=== PATIENT | male | born 1965 | race Caucasian/White ===

== ENCOUNTER 2019-12-06 00:05 | Emergency (ER) | payer SELFPAY ==
[~2019-12-06] VITALS: Ht 175.2 cm; Wt 72.0 kg
[2019-12-06] MEDS ORDERED: MAGN400O7 PO (00:23)
--- NOTE | 2019-12-06 00:23 | ED Abdominal Pain ---
General Chief Complaint: Abdominal/GI Problems Stated Complaint: LOWER ABDOMINAL PAIN Source of Information: Patient History of Present Illness Date Seen by Provider: Dec 06, 2019 Time Seen by Provider: 00:18 Initial Comments Patient presents w vague lower abdominal pain and states he has worms. States not having bowel movements and unable to urinate. Has not seen a doctor for years. Allergies and Home Medications Allergies Coded Allergies: No Known Drug Allergies (Unverified , 12/06/19) Home Medications Magnesium Hydroxide 400 Mg/5 Ml Oral.susp, 400 MG PO DAILY PRN Prescribed by: TRASHA CASTANEDA on 12/06/19 0023 Patient Home Medication List Home Medication List Reviewed: Yes Review of Systems Review of Systems Constitutional: No dizziness, No fever, No malaise Respiratory: Denies Cough, Denies Shortness of Air Cardiovascular: Denies Chest Pain, Denies Edema Gastrointestinal: See HPI; Denies Abdomen Distended; Abdominal Pain, Constipated; Denies Diarrhea, Denies Nausea, Denies Poor Fluid Intake, Denies Rectal Bleeding, Denies Vomiting Genitourinary: See HPI; Denies Drainage, Denies Flank Pain Musculoskeletal: No back pain, No joint pain Skin: see HPI; No lesions, No rash Past Mhydmiu-Wtilff-Eqklwi Hx Past Med/Social Hx: Reviewed Nursing Past Med/Soc Hx Patient Social History Recreational Drug Use: Yes Drug of Choice: Meth Recent Foreign Travel: No Contact w/Someone Who Travel: No Physical Exam Vital Signs Vital Signs - First Documented 12/06/19 00:15 Temp 36.4 Pulse 65 Resp 16 B/P (MAP) 151/79 (103) Pulse Ox 100 O2 Delivery Room Air Capillary Refill : Height/Weight/BMI Height: '" Weight: lbs. oz. kg; BMI Method: General Appearance: WD/WN, no apparent distress HEENT: normal ENT inspection Neck: non-tender, full range of motion Respiratory: chest non-tender, lungs clear, normal breath sounds Cardiovascular: regular rate, rhythm, no edema Gastrointestinal: non tender, soft; No guarding, No rebound; tenderness (generalized lower abdomen) Extremities: normal range of motion, non-tender, normal inspection, no pedal edema Back: normal inspection, no CVA tenderness Progress/Results/Core Measures Results/Orders My Orders Orders - TARSHA CASTANEDA DO Abdomen (Kub) 1 View (12/06/19 00:17) Antacid Suspension (Mylanta Suspension (12/06/19 00:30) Dicyclomine Injection (Bentyl Injection) (12/06/19 00:30) Medications Given in ED Current Medications Medications Dose Ordered Sig/Krissy Route Start Time Stop Time Status Last Admin Dose Admin Al Hydrox/Mg Hydrox/Simethicone 30 ml ONCE ONCE PO 12/06/19 00:30 12/06/19 00:31 DC 12/06/19 00:33 30 ML Dicyclomine HCl 20 mg ONCE PRN IM 12/06/19 00:30 12/06/19 00:44 DC 12/06/19 00:34 20 MG Vital Signs/I&O 12/06/19 12/06/19 00:15 00:38 Temp 36.4 36.4 Pulse 65 65 Resp 16 16 B/P (MAP) 151/79 (103) 151/79 (103) Pulse Ox 100 100 O2 Delivery Room Air Room Air Departure Impression Primary Impression: Abdominal pain Qualified Codes: R10.30 - Lower abdominal pain, unspecified Disposition: HOME, SELF-CARE Condition: Stable Departure-Patient Inst. Decision time for Depature: 00:24 Referrals: [facility] [place] PHYSICIAN (PCP) Primary Care Physician Patient Instructions: Constipation, Adult (DC) Scripts Magnesium Hydroxide (Milk of Magnesia) 400 Mg/5 Ml Oral.susp 400 MG PO DAILY PRN, #60 ML Prov: TARSHA CASTANEDA DO 12/06/19 TARSHA CASTANEDA DO Dec 06, 2019 00:23
--- NOTE | 2019-12-06 00:26 | NUR ---
PT. WAS BLADDER SCANNED AND NO URINE RETENTION WAS NOTED.
[2019-12-06] MEDS ORDERED: DICYCLOMINE 10 MG/ML (BENTYL) 2 ML AMP IM PRN (00:30)
[2019-12-06] MEDS ORDERED: ANTACID SUSP 30 ML UDC (MYLANTA) PO ONE (00:30)
[2019-12-06 00:38] VITALS: BP 151/79
--- OUTSIDE RECORDS SUMMARY | 2019-12-06 00:38 | XMS REPORT | Continuity of Care Document ---
Author Organization Unknown Address Unknown Phone Unavailable Allergies There is no data. Medications There is no data. Problems There is no data. Procedures There is no data. Results There is no data. Encounters ACCT No. Visit Date/Time Discharge Status Pt. Type Provider Facility Loc./Unit Complaint [id number] 12/04/2019 16:20:00 [facility]
--- NOTE | 2019-12-06 06:31 | Diagnostic Imaging Report ---
EXAMINATION: Abdomen at 1221 AM INDICATION: Abdominal pain Two supine views were obtained. There are no prior studies available for comparison. There is gas in both the large and small bowel in a nonspecific fashion. There is no evidence for a bowel obstruction. There is a moderate amount of fecal material in the ascending and transverse colon. There is no mass, organomegaly or pathological calcifications evident. The osseous structures are intact. IMPRESSION: The bowel gas pattern is nonspecific. There is no acute abnormality noted. Dictated by: Dictated on workstation # [id number]
== END 2019-12-06 00:38 | disposition home or self-care (01) ==
LOC: ER FS 00:16
DX: R10.30 Lower abdominal pain, unspecified (principal)
CPT/HCPCS: 74018